=== PATIENT | female | born 1955 | race Caucasian/White ===

== ENCOUNTER → 2016-12-27 | Outpatient (CLI) | payer BC | LOC: MC.RAD 12:58 | DX: Z12.31 Encounter for screening mammogram for malignant neoplasm of breast (principal) ==

== ENCOUNTER → 2018-01-01 | Outpatient (CLI) | payer BC | LOC: MC.RAD 11:21 | DX: Z12.31 Encounter for screening mammogram for malignant neoplasm of breast (principal) ==

== ENCOUNTER → 2019-01-26 | Outpatient (CLI) | payer BC | LOC: MC.RAD 10:31 | DX: Z12.31 Encounter for screening mammogram for malignant neoplasm of breast (principal) ==

== ENCOUNTER 2021-11-24 09:31 | Inpatient (IN) | payer BC ==
[~2021-11-24] VITALS: Ht 165.1 cm; Wt 68.0 kg
[2021-11-24 12:04] LABS: BASO # 0.1 K/mm3 (0.0-0.2); BASO % 0.5 % (0.0-2.0); EOS # 0.3 K/mm3 (0.0-0.7); EOS % 1.7 % (0.0-4.0); GRAN # 12.9 K/mm3 (1.4-6.5); HEMOGLOBIN 12.2 g/dl (12.5-16.0); LYMPH # 1.2 K/mm3 (1.2-3.4); LYMPH % 7.5 % (20.0-51.0); MEAN CELL VOLUME 78 fl (80.0-100.0); MEAN CORPUSCULAR HEMOGLOBIN 27 pg (27-31); MEAN CORPUSCULAR HGB CONC 35 g/dl (33.0-37.0); MEAN PLATELET VOLUME 9.3 fl (7.4-10.4); MONO # 0.8 K/mm3 (0.1-0.6); MONO % 5.5 % (1.7-9.3); PLATELET COUNT 181 K/mm3 (130-400); REDCELL DISTRIBUTION WIDTH-CV 13.2 % (11.5-14.5)
[2021-11-24 12:07] LABS: HEMATOCRIT 35.2 % (37.0-47.0)
[2021-11-24 12:09] LABS: COLLECTION METHOD CLEAN CATCH
[2021-11-24 12:14] LABS: ALBUMIN 2.9 gm/dL (3.4-4.8); CALCIUM 8.8 mg/dL (8.4-10.2); CREATININE, serum 1.31 mg/dL (0.57-1.11); TOTAL PROTEIN 6.3 gm/dL (6.2-8.1)
[2021-11-24 12:17] LABS: POTASSIUM 2.8 mmol/L (3.5-4.5)
[2021-11-24 12:19] LABS: AMORPHOUS CRYSTAL Present (NOT PRESENT); MUCOUS Present (NOT PRESENT); SQUAMOUS EPITHELIAL 0-2 /hpf (0-10); URINE APPEARANCE Clear (CLEAR/HAZY); URINE BACTERIA Rare /hpf (NONE SEEN); URINE COLOR Yellow (YELLOW); URINE RBC 0-2 /hpf (0-2)
[2021-11-24 12:20] LABS: PH 5.5 (5.0-8.5); URINE BLOOD 2+ (NEGATIVE); URINE GLUCOSE Negative (NEGATIVE); URINE KETONE 1+ (NEGATIVE); URINE NITRATE Negative (NEGATIVE); URINE PROTEIN(semi-quant) 2+ (NEGATIVE); URINE UROBILINOGEN 0.2 E.U/dL (0.2-1.0)
[2021-11-24 12:26] LABS: BILIRUBIN,TOTAL 0.6 mg/dL (0.2-1.2)
[2021-11-24] MEDS ORDERED: ZESTRIL 20MG TA20 MG PO (14:44)
[2021-11-24] MEDS ORDERED: ZOCOR 10MG10 MG PO (14:45)
[2021-11-24] MEDS ORDERED: NEURONTIN300 MG/CAP PO (14:46)
[2021-11-24] MEDS ORDERED: BACTRIM DS 8001 TAB PO (14:47)
[2021-11-24] MEDS ORDERED: ZOFRAN 4MG T4 MG/TAB PO (14:47)
[2021-11-24 15:59] VITALS: BP 101/57; PULSE 85; TEMP 98.1
[2021-11-24 19:18] LABS: CALCIUM 8.3 mg/dL (8.4-10.2); CREATININE, serum 1.09 mg/dL (0.57-1.11); POTASSIUM 3.3 mmol/L (3.5-4.5)
[2021-11-24 20:55] VITALS: BP 122/56; PULSE 72; TEMP 98.5
--- NOTE | 2021-11-24 21:30 | NUR ---
PATIENT IS RESTING IN BED.PATIENT MEDS ADMINISTERED PER MAR.PATIENT DENIES PAIN.PATIENT IS ON IVFS AND POTASSIUM IV DRIPPING WELL.PATIENT IS INDEPENDENT IN THE ROOM.NO OTHER NEEDS AT THIS TIME.
[2021-11-24 23:44] VITALS: BP 114/55; PULSE 66; TEMP 97.7
[2021-11-25 04:32] VITALS: BP 113/58; PULSE 59; TEMP 97.8
--- NOTE | 2021-11-25 05:58 | NUR ---
PATIENT HAD A CALM NIGHT.IV FLUIDS ON GOOD PROGRESS.PATIENT IS UP AT [facility].PATIENT IS AOX4.REPORTS PAIN AT 1.NO OTHER NEEDS AT THIS TIME.
[2021-11-25 06:27] LABS: BASO # 0.1 K/mm3 (0.0-0.2); BASO % 0.4 % (0.0-2.0); EOS % 0.2 % (0.0-4.0); GRAN # 10.2 K/mm3 (1.4-6.5); GRAN % 82.8 % (42.2-75.2); HEMOGLOBIN 10.6 g/dl (12.5-16.0); LYMPH # 1.2 K/mm3 (1.2-3.4); MEAN CELL VOLUME 80 fl (80.0-100.0); MEAN CORPUSCULAR HEMOGLOBIN 28 pg (27-31); MEAN CORPUSCULAR HGB CONC 34 g/dl (33.0-37.0); MEAN PLATELET VOLUME 9.3 fl (7.4-10.4); MONO # 0.7 K/mm3 (0.1-0.6); PLATELET COUNT 170 K/mm3 (130-400); RED BLOOD COUNT 3.86 M/mm3 (4.10-5.30); REDCELL DISTRIBUTION WIDTH-CV 13.9 % (11.5-14.5)
[2021-11-25 06:30] LABS: HEMATOCRIT 30.8 % (37.0-47.0)
[2021-11-25 06:42] LABS: CALCIUM 7.9 mg/dL (8.4-10.2); CREATININE, serum 0.86 mg/dL (0.57-1.11); POTASSIUM 3.4 mmol/L (3.5-4.5)
[2021-11-25 07:41] VITALS: BP 132/53; PULSE 64; TEMP 97.7
--- NOTE | 2021-11-25 11:35 | NUR ---
SPOKE WITH DR RODRIGUEZ REGARDING PATIENT PLANS. INFORMED HER 3-5 GAUZE USED PER SHIFT FOR PATIENTS NOSE BLEED. SHE REITERATED WHAT DR HOUSER STATED YESTERDAY, THAT IT WOULD BE MORE A CONCERN IF IT WAS 6-7 GAUZES PER HOUR. SHE ALSO STATED HIS BLOOD PRESSURE BEING ELEVATED WILL INCREASE HIS BLEEDING AND THAT HE IS HERE TO HELP CONTROL/MANAGE HIS HYPERTENSION. GAVE HER UPDATE REGARDING PATIETN STATUS. PHYSICIAN STATED IT IS LIKELY DR HOUSER WILL SEE THE PATIENT TOMORROW. PATIENT AND HOSPITALIST UPDATED.
[2021-11-25 11:41] VITALS: BP 123/62; PULSE 70; TEMP 97.7
[2021-11-25 12:34] LABS: OSMOLALITY-URINE random 345 Osm/kg (50-1200)
[2021-11-25 15:41] VITALS: BP 128/47; PULSE 66; TEMP 98.3
--- NOTE | 2021-11-25 15:59 | NUR ---
PATIENT REQUESTED PAIN MEDICATION. SPOKE TO PATIENT ABOUT SWITCHING TO ORAL PAIN MEDICATION, SUCH 20MG ROXANOL. PATIENT STATED HE DOESNT WANTT TO TRY IT AT THIS TIME, "MAYBE LATER."
--- NOTE | 2021-11-25 17:35 | NUR ---
PATIENT RESTING IN BED WITH NO COMPLAINTS OR NEEDS AT THIS TIME.
[2021-11-25 19:53] VITALS: BP 132/59; PULSE 67; TEMP 97.4
[2021-11-25 23:41] VITALS: BP 127/52; PULSE 68; TEMP 9834
[2021-11-26 03:26] VITALS: BP 119/62; PULSE 78; TEMP 98.3
--- NOTE | 2021-11-26 06:10 | NUR ---
PATIENT RESTED QUIETLY THIS SHIFT. PATIENT RECEIVED PRN LORTAB X1 AND PATIENT REPORTED PAIN BETTER. PATIENT DENIED CONCERNS.
[2021-11-26 06:33] LABS: BASO # 0.1 K/mm3 (0.0-0.2); BASO % 0.5 % (0.0-2.0); EOS # 0.2 K/mm3 (0.0-0.7); EOS % 1.6 % (0.0-4.0); GRAN # 7.5 K/mm3 (1.4-6.5); GRAN % 75.3 % (42.2-75.2); HEMOGLOBIN 10.4 g/dl (12.5-16.0); LYMPH # 1.5 K/mm3 (1.2-3.4); LYMPH % 15.3 % (20.0-51.0); MEAN CELL VOLUME 82 fl (80.0-100.0); MEAN CORPUSCULAR HEMOGLOBIN 28 pg (27-31); MEAN CORPUSCULAR HGB CONC 34 g/dl (33.0-37.0); MEAN PLATELET VOLUME 9.6 fl (7.4-10.4); MONO # 0.7 K/mm3 (0.1-0.6); MONO % 6.8 % (1.7-9.3); PLATELET COUNT 190 K/mm3 (130-400); RED BLOOD COUNT 3.72 M/mm3 (4.10-5.30); REDCELL DISTRIBUTION WIDTH-CV 14.4 % (11.5-14.5)
[2021-11-26 06:38] LABS: HEMATOCRIT 30.3 % (37.0-47.0)
--- NOTE | 2021-11-26 06:45 | NUR ---
appears to be sleeping, in bed with lights off, eyes closed, bedside shift report received from FREDY Sidhu
[2021-11-26 06:49] LABS: CALCIUM 8.1 mg/dL (8.4-10.2); CREATININE, serum 0.76 mg/dL (0.57-1.11); POTASSIUM 3.7 mmol/L (3.5-4.5)
[2021-11-26 07:49] VITALS: BP 146/63; PULSE 67; TEMP 98.1
[2021-11-26] MEDS ORDERED: FLAGYL500 MG PO (08:25)
[2021-11-26] MEDS ORDERED: LEVAQUIN 750MG750 M1 PO (08:25)
[2021-11-26] MEDS ORDERED: PRINZIDE 25 MG-1 TAB PO (08:30)
--- NOTE | 2021-11-26 08:30 | NUR ---
Dr Davis and care team in to see patient, c/o some nausea and medicated with zofran 4mg slow IV, full assessment completed, see interventions for further info
[2021-11-26] MEDS ORDERED: PRINIVIL20 MG PO (08:32)
--- NOTE | 2021-11-26 10:17 | NUR ---
Product Development Director met with patient to discuss discharge planning. Patient lives in [place] with her , Felice (ph#[phone]) and sees Dr. Britt for primary care. Patient obtains medications from [facility] with no difficulties although did remark that there was one time that a cough syrup that was ordered was expensive so she did not fill it. Patient does not use any DME and is independent with [facility]. Patient does not have DPOA-HC and is not interested in completing one at this time. Patient plans to return home today at time of discharge. Discharge Plan: Home
[2021-11-26 11:39] VITALS: BP 143/90; PULSE 69; TEMP 97.9
--- NOTE | 2021-11-26 12:10 | NUR ---
is here and she is ready for discharge instructions given to her and her , verbalizes understanding
--- NOTE | 2021-11-26 12:23 | NUR ---
discharged per WC
== END 2021-11-26 12:23 | disposition home or self-care (01) | DRG 690 ==
LOC: COL.ER 09:31 → MEDICAL 14:13
PROVIDERS: Nurse Practitioner; ADMIT Student in an Organized Health Care Education/Training Program
DX: N12 Tubulo-interstitial nephritis, not specified as acute or chronic (principal); E87.1 Hypo-osmolality and hyponatremia; A07.1 Giardiasis [lambliasis]; N39.0 Urinary tract infection, site not specified; I10 Essential (primary) hypertension; E78.5 Hyperlipidemia, unspecified; E87.6 Hypokalemia; G62.9 Polyneuropathy, unspecified; D72.829 Elevated white blood cell count, unspecified; N17.9 Acute kidney failure, unspecified; E86.1 Hypovolemia; N28.89 Other specified disorders of kidney and ureter; R59.0 Localized enlarged lymph nodes; Z90.710 Acquired absence of both cervix and uterus; Z88.8 Allergy status to other drugs, medicaments and biological substances
CPT/HCPCS: J1650; J2405; J2543; J3480; J7030; Q9967

== ENCOUNTER → 2022-01-02 | Outpatient (CLI) | payer BC ==
[~2022-01-02] MED LIST: BACTRIM DS 8001 TAB PO; FLAGYL500 MG PO; LEVAQUIN 750MG750 M1 PO; NEURONTIN300 MG/CAP PO; PRINIVIL20 MG PO; PRINZIDE 25 MG-1 TAB PO; ZESTRIL 20MG TA20 MG PO; ZOCOR 10MG10 MG PO; ZOFRAN 4MG T4 MG/TAB PO
== END ==
LOC: COL.RAD 09:27
DX: N28.89 Other specified disorders of kidney and ureter (principal); R59.0 Localized enlarged lymph nodes
CPT/HCPCS: Q9967